=== PATIENT | female | born 1955 | race Caucasian/White ===

== ENCOUNTER 2019-02-25 13:59 | Emergency (ER) | payer OTHER ==
[2019-02-25 14:13] VITALS: BP 135/74; PULSE 97; TEMP 98; BMI 23.1
--- NOTE | 2019-02-25 14:13 | PDOC ---
Rapid Medical Evaluation Time Seen by Provider: 02/25/19 14:10 Medical Evaluation: Allergies Allergy/AdvReac Type Severity Reaction Status Date / Time No Known Allergies Allergy Verified 03/30/12 14:30 02/25/19 14:10 I have performed a brief exam on this patient. CC: Right thumb pain PE: No deformity. crepitus with flexion and extension of right thumb IPJ. Orders: xray The patient will proceed to the ER for further evaluation. Discharge Disposition - Diagnosis Pain of right thumb - Referrals - Patient Instructions - Post Discharge Activity
--- NOTE | 2019-02-25 15:01 | PDOC ---
History of Present Illness - General Chief Complaint: Injury Stated Complaint: INJURY Time Seen by Provider: 02/25/19 14:10 History Source: Patient Exam Limitations: No Limitations - History of Present Illness Initial Comments: 02/25/19 14:56 Comes for evaluation of right thumb pain. States spell a few days ago and has difficulty flexing and extending at IP joint of right thumb. States on occasion thumb becomes locked in flexion. Patient states her thumb in the past has been injured but never locked Severity: reports: mild Method of Injury: Yes: unknown, fall Past History - Travel Traveled outside of the country in the last 30 days: No Close contact w/someone who was outside of country & ill: No - Past Medical History Allergies/Adverse Reactions: Allergies Allergy/AdvReac Type Severity Reaction Status Date / Time No Known Allergies Allergy Verified 02/25/19 14:12 Home Medications: Ambulatory Orders Finger Splint 1 each MC DAILY #1 each 02/25/19 COPD: No HTN: Yes - Suicide/Smoking/Psychosocial Hx Smoking Status: Yes Smoking History: Never smoked Number of Cigarettes Smoked Daily: 4 Information on smoking cessation initiated: No Hx Alcohol Use: No Drug/Substance Use Hx: No Review of Systems - Review of Systems Able to Perform ROS?: Yes Is the patient limited Korean proficient: Yes Constitutional: Yes: See HPI. No: Symptoms Reported HEENTM: No: Symptoms Reported Respiratory: No: Symptoms reported Musculoskeletal: Yes: Symptoms Reported, See HPI, Joint Pain. No: Joint Swelling Integumentary: Yes: See HPI. No: Symptoms Reported, Bruising All Other Systems: Reviewed and Negative *Physical Exam - Vital Signs Last Vital Signs Temp Pulse Resp BP Pulse Ox 98 F 97 H 18 135/74 100 02/25/19 14:11 02/25/19 14:11 02/25/19 14:11 02/25/19 14:11 02/25/19 14:11 - Physical Exam General Appearance: Yes: Nourished, Appropriately Dressed. No: Apparent Distress HEENT: positive: [place], Normal ENT Inspection, TMs Normal, Pharynx Normal Extremity: positive: Normal Capillary Refill, Tender (at IP joint with no crepitus or bruising . 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 II-XII NML intact, Fully Oriented, Alert, Normal Response, Motor Strength 5/5 Progress Note - Progress Note Progress Note: XRAY Negative for Fx/ Dx, Some DJD, Dx:" trigger finger- splinted *DC/Admit/Observation/Transfer Diagnosis at time of Disposition: Pain of right thumb - Discharge Dispostion Disposition: HOME Condition at time of disposition: Stable Decision to Admit order: No - Prescriptions Prescriptions: Finger Splint 1 each MC DAILY #1 each - Referrals Referrals: Adrian Hathaway MD [Staff Physician] - - Patient Instructions Printed Discharge Instructions: DI for Trigger Finger Additional Instructions: Rest, ice to area on and off for 15 minutes 4-6 times a day Avoid heavy lifting or exercise until pain and swelling is resolved or until further directed Keep area highly elevated to reduce swelling Use splints/Francisco wrap as directed Followup with orthopedist in one to 2 days if not improving, if significantly improved may wait one week for followup with orthopedist May use ibuprofen 2-200 mg tablets every 6 hours as needed for pain - Post Discharge Activity
== END 2019-02-25 15:36 | disposition home or self-care (01) ==
LOC: JERFT 13:59
PROC: 2W3GX1Z Immobilization of Right Thumb using Splint (ICD-10-PCS; principal; 2019-02-25)
DX: M79.644 Pain in right finger(s) (principal); I10 Essential (primary) hypertension
CPT/HCPCS: 73140-TC-RT-FY; 99281-25